=== PATIENT | male | born 1980 | race African-American/Black ===

== ENCOUNTER 2016-10-25 23:16 | Emergency (ER) | payer BC ==
[~2016-10-25] VITALS: Ht 188 cm; Wt 89.8 kg
[2016-10-25] MEDS ORDERED: PREZCOBIX 8001 EACH PO (23:25)
[2016-10-26 01:00] VITALS: BP 125/76
[2016-10-26] MEDS ORDERED: Norco 5mg/325mg tab ORAL ONE (01:15)
[2016-10-26 01:41] VITALS: BP 125/76
--- NOTE | 2016-10-26 04:37 | Emergency Room Report ---
History of Present Illness General Chief Complaint: Laceration Source: Patient Present Illness HPI 36-year-old male presents ED with laceration to left wrist. States he cut it with broken glass tonight. Patient is here for evaluation. Notes some pain, throbbing, 8/10, nonradiating. Worse with flexion and extension. Patient states there may be tendon involvement. Tetanus is up-to-date. Denies any other injuries. No other aggravating or relieving factors. Denies any other associated symptoms Allergies: Coded Allergies: No Known Allergies (Unverified , 10/25/16) Patient History Past Medical History: none Past Surgical History: none Pertinent Family History: none Social History: Denies: alcohol use, drug use, smoking Immunizations: UTD Reviewed Nursing Documentation: PMH: Agreed, PSxH: Agreed Review of Systems All Other Systems: negative except mentioned in HPI Physical Exam Vital Signs Date Time Temp Pulse Resp B/P Pulse Ox O2 Delivery O2 Flow Rate FiO2 10/25/16 23:19 97.7 77 16 119/74 98 Room Air Sp02 EP Interpretation: reviewed, normal General Appearance: no apparent distress, alert, GCS 15, non-toxic Head: normocephalic Eyes: bilateral eye PERRL, bilateral eye normal inspection ENT: normal ENT inspection Neck: normal inspection Respiratory: normal inspection Cardiovascular #1: normal inspection Gastrointestinal: normal inspection Rectal: deferred Genitourinary: no CVA tenderness Musculoskeletal: other - 4x3cm area open skin to ventral L wrist. cut tendon noted Medical Decision Making Diagnostic Impression: Primary Impression: Tendon laceration ER Course Hospital Course 36-year-old M presents to ED s/p laceration L wrist with broken glass Clinical course Patient placed on stretcher. After initial history, physical exam reveals a middle-age male in no acute distress. There is a large area of skin removal to the ventral left wrist. Laceration is deep, and there is a cut tendon noted. Patient does have full range of motion and full and extension of the wrist. Sensations intact Wound is irrigated. Dressing applied. Given [place] for pain. I attempted to contact multiple plastic/hand surgeons but was unsuccessful. Patient stated that he did not want to wait and will go to another hospital Understands the risks of leaving. Patient has competency to make his own decisions. Signed AMA form. Diagnosis - tendon laceration left AMA in stable condition Last Vital Signs Date Time Temp Pulse Resp B/P Pulse Ox O2 Delivery O2 Flow Rate FiO2 10/26/16 01:41 97.7 79 16 125/76 99 Room Air Status: unchanged Disposition: AGAINST MEDICAL ADVICE Condition: Stable Patient Instructions: Tendon Injury GABINO MOELLER M.D. Oct 26, 2016 04:37
== END 2016-10-26 01:32 | disposition left against medical advice (07) ==
LOC: EMR 23:38
DX: S66.922A Laceration of unspecified muscle, fascia and tendon at wrist and hand level, left hand, initial encounter (principal); W25.XXXA Contact with sharp glass, initial encounter; Y92.9 Unspecified place or not applicable; Y99.8 Other external cause status
CPT/HCPCS: 99283